=== PATIENT | female | born 1970 | race Caucasian/White ===

== ENCOUNTER 2021-08-16 09:49 | Outpatient (CLI) | payer MEDICARE, OTHER, SELFPAY ==
--- NOTE | 2021-08-16 09:59 | MM_ITS ---
WS: [id number] BILATERAL SCREENING 3D TOMOSYNTHESIS DIGITAL MAMMOGRAM WITH CAD HISTORY: SCREENING COMPARISON: 11/07/2013 and 10/28/2012 Bilateral CC and MLO views submitted. Computer aided detection analyzed. Breast composition: The breasts are heterogeneously dense, which may obscure small masses. No suspici ous masses, microcalcifications or architectural distortion. Benign calcifications in each breast. MM/[place] [id number] IMPRESSION: BI-RADS: 2-Benign FOLLOW UP: 1 Year Follow-up
== END 2021-08-16 09:50 | disposition home or self-care (01) ==
LOC: RADSHAW 09:54
PROVIDERS: PCP Nurse Practitioner Family; Visit Provider Physician Assistant
DX: Z12.31 Encounter for screening mammogram for malignant neoplasm of breast (principal)
CPT/HCPCS: 77063; 77067

== ENCOUNTER 2023-04-30 12:56 | Oncology outpatient (recurring) (ONCR) | payer MEDICARE, OTHER, SELFPAY ==
[2023-04-30 13:50] VITALS: BP 111/77; PULSE 96; RESP 17; TEMP 37.1; O2SAT 98
[2023-04-30] MEDS: tocilizumab 800 MG in sodium chloride 0.9% (100 ml) 100 ML 140 MG IV (14:06)
[2023-04-30 15:15] VITALS: BP 128/76; PULSE 74; RESP 18; TEMP 36.6; O2SAT 98
== END 2023-05-13 23:59 | disposition home or self-care (01) ==
PROVIDERS: PCP Nurse Practitioner Family; Visit Provider Nurse Practitioner Family
DX: M06.042 Rheumatoid arthritis without rheumatoid factor, left hand (principal); M06.041 Rheumatoid arthritis without rheumatoid factor, right hand
CPT/HCPCS: 96365; J3262

== ENCOUNTER 2023-06-01 12:49 | Oncology outpatient (recurring) (ONCR) | payer MEDICARE, OTHER, SELFPAY ==
[2023-06-01 13:05] VITALS: BP 131/85; PULSE 91; RESP 18; TEMP 36.5; O2SAT 97
[2023-06-01] MEDS: cetirizine 10 mg Tablet PO (13:39)
[2023-06-01] MEDS: sodium chloride 0.9% 250 ML 75 ML IV (13:40)
[2023-06-01] MEDS: tocilizumab 800 MG in sodium chloride 0.9% (100 ml) 100 ML 140 MG IV (14:05)
[2023-06-01 15:02] VITALS: BP 127/84; PULSE 101; RESP 18; TEMP 36.4; O2SAT 94
== END 2023-06-11 23:59 | disposition home or self-care (01) ==
PROVIDERS: PCP Nurse Practitioner Family; Visit Provider Nurse Practitioner Family
DX: M06.042 Rheumatoid arthritis without rheumatoid factor, left hand (principal); M06.041 Rheumatoid arthritis without rheumatoid factor, right hand; Z53.9 Procedure and treatment not carried out, unspecified reason
CPT/HCPCS: 96413; J3262; J7050

== ENCOUNTER 2023-07-02 12:34 | Oncology outpatient (recurring) (ONCR) | payer MEDICARE, OTHER, SELFPAY ==
[2023-07-02 13:43] VITALS: BP 124/78; PULSE 90; RESP 18; TEMP 36.6; O2SAT 98
[2023-07-02] MEDS: cetirizine 10 mg Tablet PO (13:52)
[2023-07-02] MEDS: sodium chloride 0.9% 250 ML 75 ML IV (13:53)
[2023-07-02] MEDS: tocilizumab 800 MG in sodium chloride 0.9% (100 ml) 100 ML 140 MG IV (13:56)
[2023-07-02 15:19] VITALS: BP 121/74; PULSE 74; RESP 18; TEMP 36.6; O2SAT 98
== END 2023-07-12 23:59 | disposition home or self-care (01) ==
PROVIDERS: PCP Nurse Practitioner Family; Visit Provider Internal Medicine
DX: M06.042 Rheumatoid arthritis without rheumatoid factor, left hand (principal); M06.041 Rheumatoid arthritis without rheumatoid factor, right hand
CPT/HCPCS: 96413; J3262; J7050

== ENCOUNTER 2023-07-30 12:46 | Oncology outpatient (recurring) (ONCR) | payer MEDICARE, OTHER, SELFPAY ==
[2023-07-30 13:18] VITALS: BP 130/78; PULSE 100; RESP 16; TEMP 36.6; O2SAT 99
--- NOTE | 2023-07-30 13:45 | PC.NURSE ---
patient reports that she took zyrtec 10mg PO 07/29/23 at 1900 and takes that medication scheduled QHS
[2023-07-30] MEDS: tocilizumab 800 MG in sodium chloride 0.9% (100 ml) 100 ML 140 MG IV (13:53)
[2023-07-30 14:02] LABS: Basophils # 0.1 10^3/uL (0.0-0.1); Eosinophils # 0.3 10^3/uL (0.0-0.8); Eosinophils % 3.1 %; Hematocrit 40.2 % (36-47); Lymphocytes # 2.6 10^3/uL (0.8-4.8); Lymphocytes % 28.2 %; Mean Corpuscular HGB Conc 32.3 g/dL (30-55); Mean Corpuscular Hemoglobin 27.4 pg (27-33); Mean Corpuscular Volume 84.8 fl (85-98); Mean Platelet Volume 9.6 fL (7.4-10.4); Monocytes # 0.7 10^3/uL (0.2-0.9); Monocytes % 7.6 %; Neutrophils # 5.54 10^3/uL (1.8-7.7); Neutrophils % 59.6 %; Nucleated Red Blood Cells % 0 %; Platelet Count 407 10^3/cmm (157-399); Red Blood Count 4.74 10^6/uL (3.85-5.65); Red Cell Distribution Width 14.7 % (12.1-15.1)
[2023-07-30 14:21] LABS: Alanine Aminotransferase 84 U/L (0-33); Aspartate Amino Transferase 45 U/L (0-32); Creatinine Clr Calc Pharmacy 99.5469; Glomerular Filtration Rate 75.3 mL/min (90-130)
[2023-07-30 14:55] VITALS: BP 111/77; PULSE 96; RESP 18; TEMP 36.5; O2SAT 97
== END 2023-08-11 23:59 | disposition home or self-care (01) ==
PROVIDERS: PCP Nurse Practitioner Family; Visit Provider Internal Medicine
DX: M06.042 Rheumatoid arthritis without rheumatoid factor, left hand (principal); M06.041 Rheumatoid arthritis without rheumatoid factor, right hand
CPT/HCPCS: 82565; 84450; 84460; 85025; 96365; 96413; J3262

== ENCOUNTER 2023-08-27 11:57 | Oncology outpatient (recurring) (ONCR) | payer MEDICARE, OTHER, SELFPAY ==
[2023-08-27 12:16] VITALS: BP 145/80; PULSE 109; RESP 16; TEMP 36.4; O2SAT 97
[2023-08-27] MEDS: sodium chloride 0.9% 250 ML 75 ML IV (12:32)
[2023-08-27] MEDS: tocilizumab 800 MG in sodium chloride 0.9% (100 ml) 100 ML 140 MG IV (12:43)
[2023-08-27 13:42] VITALS: BP 122/75; PULSE 90; RESP 17; TEMP 36.7; O2SAT 95
== END 2023-09-11 23:59 | disposition home or self-care (01) ==
LOC: ONCMED 11:58
PROVIDERS: PCP Nurse Practitioner Family; Visit Provider Internal Medicine
DX: M06.042 Rheumatoid arthritis without rheumatoid factor, left hand (principal); M06.041 Rheumatoid arthritis without rheumatoid factor, right hand
CPT/HCPCS: J3262; J7050

== ENCOUNTER 2023-09-24 12:15 | Oncology outpatient (recurring) (ONCR) | payer MEDICARE, OTHER, SELFPAY ==
[2023-09-24 13:10] VITALS: BP 119/75; PULSE 99; RESP 16; TEMP 36.3; O2SAT 97
[2023-09-24] MEDS: tocilizumab 800 MG in sodium chloride 0.9% (100 ml) 100 ML 140 MG IV (13:41)
[2023-09-24 14:35] VITALS: BP 132/80; PULSE 92; RESP 16; TEMP 36.4; O2SAT 91
== END 2023-10-11 23:59 | disposition home or self-care (01) ==
LOC: ONCMED 12:16
PROVIDERS: PCP Nurse Practitioner Family; Visit Provider Internal Medicine
DX: M06.042 Rheumatoid arthritis without rheumatoid factor, left hand (principal); M06.041 Rheumatoid arthritis without rheumatoid factor, right hand
CPT/HCPCS: 96365; J3262

== ENCOUNTER 2023-12-28 10:42 | Outpatient (CLI) | payer MEDICARE, OTHER, SELFPAY ==
--- NOTE | 2023-12-28 10:48 | MM_ITS ---
WS: [id number] BILATERAL SCREENING DIGITAL TOMOSYNTHESIS MAMMOGRAM WITH CAD HISTORY: SCREENING COMPARISON: 08/16/2021, 11/07/2013 Bilateral CC and MLO views with tomosynthesis and synthetic mammography submitted. Computer aided det ection analyzed. Breast composition: The breasts are heterogeneously dense, which may obscure small masses. No suspici ous masses, microcalcifications or architectural distortion. Numerous calcifications and bilateral br east masses are all stable. No new mass or distortion. MM/MM scr tomosynthesis [id number] IMPRESSION: BI-RADS: 2 - Benign FOLLOW UP: 1 Year Follow-up
== END 2023-12-28 10:43 | disposition home or self-care (01) ==
PROVIDERS: PCP Nurse Practitioner Family; Visit Provider Nurse Practitioner Family
DX: Z12.31 Encounter for screening mammogram for malignant neoplasm of breast (principal); R92.333 Mammographic heterogeneous density, bilateral breasts; R92.1 Mammographic calcification found on diagnostic imaging of breast
CPT/HCPCS: 77063; 77067

== ENCOUNTER → 2024-05-10 13:49 | Outpatient (BNVA) | payer MEDICARE, OTHER, SELFPAY | PROVIDERS: PCP Nurse Practitioner Family; Visit Provider Orthopaedic Surgery | DX: M54.9 Dorsalgia, unspecified (principal); E11.9 Type 2 diabetes mellitus without complications; M48.062 Spinal stenosis, lumbar region with neurogenic claudication | CPT/HCPCS: 36415; 72072; 72110; 80053; 81003; 83036; 85025; 99204 ==

== ENCOUNTER → 2024-05-20 09:59 | Outpatient (BNVA) | payer MEDICARE, OTHER, SELFPAY | PROVIDERS: PCP Nurse Practitioner Family; Visit Provider Family Medicine | DX: Z01.818 Encounter for other preprocedural examination (principal) | CPT/HCPCS: 93005 ==

== ENCOUNTER 2024-05-23 12:06 | Day surgery (SDC) | payer MEDICARE, OTHER, SELFPAY ==
[2024-05-23] VITALS (11 sets, daily range): BP systolic 128–161; BP diastolic 82–101; PULSE 72–88; RESP 14–18; TEMP 36.2–36.4; O2SAT 90–100; BMI 36.9
--- NOTE | 2024-05-23 | XR_ITS ---
WS: [id number] XR lumbar spine 1V [id number] REASON FOR EXAM: OR PICS FINDINGS: Dorsal column stimulator placement midline T9-10. XR/XR lumbar spine 1V [id number] IMPRESSION: Dorsal column stimulator as above.
[2024-05-23] MEDS: sodium chloride 0.9% 1,000 ML 30 ML IV (12:56)
[2024-05-23 13:01] LABS: Glucose Point of Care 103 mg/dL (70-110)
--- NOTE | 2024-05-23 13:47 | W.PM.OPSUD ---
Surgery/Procedure H&P Update DATE OF PROCEDURE: May 23, 2024 DATE H&P PERFORMED: 05/20/24 H&P UPDATE INFORMATION: I have reviewed H&P completed within last 30 days, I have examined patient prior to procedure and No changes to prior documentation PREOP DIAGNOSIS: Lumbar stenosis neurogenic claudication PLANNED PROCEDURE: Operation Date: 05/23/24 13:55 Proposed Procedures p Implantation of Neurostimulator Paddle Implantation of Neurostimulator Paddle(Not Applicable) - Guero Finney DO s Spinal Cord Stimulator Placement(Not Applicable) - Guero Finney DO
--- NOTE | 2024-05-23 14:03 | ANES.PREANE2 ---
Pre-Anesthetic Assessment Height/Weight: Height 5 ft 5 in Weight 222 lb Temp Pulse Resp BP Pulse Ox O2 Del Method 97.6 F 85 18 161/101 96 Room Air 05/23/24 12:45 05/23/24 12:45 05/23/24 12:45 05/23/24 12:45 05/23/24 12:45 05/23/24 12:45 Preop Diagnosis: Lumbar stenosis neurogenic claudication Operation Date: 05/23/24 13:55 Proposed Procedures p Implantation of Neurostimulator Paddle Implantation of Neurostimulator Paddle(Not Applicable) - Guero Finney DO s Spinal Cord Stimulator Placement(Not Applicable) - Guero Finney DO Was Beta Karyn taken within 24 hours: N/A Was Clonidine taken within 24 hours: N/A Last intake: Intake Last Liquid Date 05/23/24 Last Liquid Time 07:30 Last Solid Date 05/22/24 Last Solid Time 19:30 Social No alcohol and No tobacco Exam alert, oriented x 3, clear to auscultation bilaterally and regular rate & rhythm Airway Submandibular: within normal limits Cervical ROM: within normal limits Mallampati: Class III Dentition: full Comments: Comments: Small mouth opening Anesthetic Plan ASA status: 3 Anesthesia: General Other: Patient states that she got mildly nauseous after her last general anesthetic NPO since yesterday History of hypertension on lisinopril Type 2 diabetes on semaglutide. Last taken 05/15/2024 Hypothyroidism on Synthroid Labs 05/10/2024 reviewed acceptable for procedure Plan for general anesthesia Medications/Allergies Home Medications ?Medication ?Instructions ?Recorded ?Confirmed ?Last Taken ?Type cetirizine 5 mg tablet (Allergy 5 mg PO DAILY 05/10/24 05/20/24 05/19/24 History Relief (cetirizine)) cholecalciferol (vitamin D3) 50 50 mcg PO DAILY 05/10/24 05/20/24 05/19/24 History mcg (2,000 unit) chewable tablet diphenhydramine HCl 25 mg tablet 25 mg PO QDAY 05/10/24 05/20/24 05/19/24 History (Allergy Relief (diphenhydramine)) etanercept 50 mg/mL (1 mL) 50 mg SUBCUT DAILY 05/10/24 05/20/24 05/15/24 History subcutaneous pen injector (Enbrel SureClick) levothyroxine 125 mcg capsule 125 mcg PO DAILY 05/10/24 05/20/24 05/19/24 History lisinopril 40 mg tablet 40 mg PO DAILY 05/10/24 05/20/24 05/19/24 History metformin 500 mg tablet 500 mg PO DAILY 05/10/24 05/20/24 05/19/24 History montelukast 10 mg tablet 10 mg PO DAILY 05/10/24 05/20/24 05/19/24 History omeprazole 40 mg capsule,delayed 40 mg PO DAILY 05/10/24 05/20/24 05/19/24 History release semaglutide 0.25 mg or 0.5 mg (2 0.25 mg SUBCUT DIRECTED 05/10/24 05/20/24 05/15/24 History mg/1.5 mL) subcutaneous pen injector (Ozempic) Allergies Allergy/AdvReac Type Severity Reaction Status Date / Time acetaminophen (From Vicodin) Allergy Unknown Verified 05/20/24 10:22 amoxicillin (From Augmentin) Allergy ADR-Nausea Verified 05/20/24 10:22 clavulanic acid (From Allergy ADR-Nausea Verified 05/20/24 10:22 Augmentin) coconut Allergy ALGY-Swell Verified 05/20/24 10:22 Lip/Tongue/Throat hydrocodone (From Vicodin) Allergy Unknown Verified 05/20/24 10:22 Current Medications Generic Name Dose Route Start Last Admin Trade Name Freq PRN Reason Stop Dose Admin Sodium Chloride 1,000 mls @ 30 mls/hr 05/23/24 12:30 05/23/24 12:56 Sodium Chloride 0.9% IV 05/24/24 12:29 30 mls/hr .Q24H JESSI Administration PFSH Anesthesia Social History Smoking and tobacco/nicotine status: former use of tobacco/nicotine Data Anesthesia Cardiac Studies: No Data to Display
[2024-05-23] MEDS: ceFAZolin 2,000 mg SDV 2000 MG IVP (14:23)
[2024-05-23] MEDS: VANCOMYCIN ADD-Vantage 1,000 MG VIAL 1000 MG XX (15:03)
[2024-05-23] MEDS: lidocaine-epi 1% 20 mL INJ 10 ML INJECTION (15:04)
--- NOTE | 2024-05-23 15:50 | P.OP_ITS ---
Operative Report Date of procedure: May 23, 2024 Pre-op diagnosis: Lumbar stenosis neurogenic claudication Post-op diagnosis: same Procedure done: 1. Placement of neurostimulator paddle 2. Placement of neurostimulator generator/battery Surgeon: Guero Finney DO Estimated blood loss (mL): 15 Procedure: 1. Neurostimulator paddle placement 2. Neurostimulator generator/battery placement Patient is brought to the op suite after going anesthesia was placed in the prone position. All areas appear well-padded. Patient's prepped draped normal sterile fashion. Skin incision made over the T10-11 disc space. Subperiosteal dissection was made out to the transverse processes. Retractors were placed. Rongeur was used by down the spinous process. High-speed bur was used to take down part of the lamina as well as the medial aspect of facet joints. Curved curette was used to undermine where the ligament is and make a space and through the ligament. The Kerrison rongeur was then used to bite the ligament make a hole in the ligament to make space for the placement of the neurostimulator. The hockey-stick trial was then passed followed by placing the neurostimulator up to the middle of T8 body. This was confirmed on C-arm guidance and confirmed with the [employer]tronic rep. AP lateral fluoroscopy ensured that the stimulator was placed in good position. The wires were then sutured down the spinous process of T11. Skin incisions then made over the right flank and a pocket was made for the battery is going to go. The tunneler was then passed from the battery pocket to the location where the wires. The wires were then passed subcutaneously into the pocket. And then the wire was then placed in the battery and tucked underneath and sutured into position. With 0 Vicryl Monocryl suture. And then the laminectomy site was then closed with 0 Vicryl 2-0 Vicryl and Monocryl suture. Sterile dressings were applied and patient was transferred to the PACU in stable condition.
[2024-05-23] MEDS: fentaNYL 50 mcg/mL INJ 2mL IVP (16:01)
[2024-05-23] MEDS: scopolamine 1 mg PATCH 1 PATCH TRANSDERMA (17:05)
--- NOTE | 2024-05-23 17:17 | ANE.PACU2 ---
Inpatient post-anesthesia follow up: Airway intact: Yes Vital signs: Temperature 97.1 F Pulse Rate 80 Respiratory Rate 16 Blood Pressure 139/86 Pulse Oximetry 100 Oxygen Delivery Me thod Nasal Cannula Oxygen Flow Rate 1 Fraction of Inspir ed Oxygen Hydration adequate: Yes Nausea and vomiting: No Pain level: 2 Mental status: Baseline
== END 2024-05-23 17:17 | disposition home or self-care (01) ==
PROVIDERS: PCP Nurse Practitioner Family; Visit Provider Orthopaedic Surgery
PROC: (CPT 63655; principal; 2024-05-23 13:45)
PROC: (CPT 63685; 2024-05-23 13:45)
DX: M48.062 Spinal stenosis, lumbar region with neurogenic claudication (principal); I10 Essential (primary) hypertension; E11.9 Type 2 diabetes mellitus without complications; E03.9 Hypothyroidism, unspecified; Z87.891 Personal history of nicotine dependence
CPT/HCPCS: 63655; 63685; 36416; 72020; 76000; 82962; C1713; J0690; J1100; J1200; J2250; J2405; J2704; J3010; J3370; J3490; J7030

== ENCOUNTER → 2024-06-07 14:20 | Outpatient (BNVA) | payer MEDICARE, OTHER, SELFPAY | PROVIDERS: PCP Nurse Practitioner Family; Visit Provider Orthopaedic Surgery | DX: Z48.89 Encounter for other specified surgical aftercare (principal) | CPT/HCPCS: 99024 ==

== ENCOUNTER → 2024-06-14 12:39 | Outpatient (BNVA) | payer MEDICARE, OTHER, SELFPAY | PROVIDERS: PCP Nurse Practitioner Family; Visit Provider Orthopaedic Surgery | DX: Z48.89 Encounter for other specified surgical aftercare (principal) | CPT/HCPCS: 99024 ==

== ENCOUNTER 2025-03-16 13:38 | Outpatient (CLI) | payer MEDICARE, OTHER, SELFPAY ==
--- NOTE | 2025-03-16 13:45 | MM_ITS ---
WS: [id number] VIEWS: MLO and CC views both breasts. 3D digital tomosynthesis is also included in this exam. Comparison made with prior exam of 11/07/2013. 11/21/2011. 10/28/2012. 08/16/2021. 12/28/2023. Findings: The breasts are heterogeneously dense, which may obscure small masses. Stable appearing nodular densities in both breasts. Scattered bilateral benign- appearing calcifications. No new suspicious finding. MM/MM scr BI tomosynthesis [id number] Impression: BI-RADS: 2 - Benign FOLLOW-UP: 1 Year Follow-up This mammogram was also analyzed by the Computer Aided Detection System [employer].
== END 2025-03-16 13:39 | disposition home or self-care (01) ==
LOC: RAD 13:38
PROVIDERS: PCP Nurse Practitioner Family; Visit Provider Nurse Practitioner Family
DX: Z12.31 Encounter for screening mammogram for malignant neoplasm of breast (principal); R92.333 Mammographic heterogeneous density, bilateral breasts; R92.1 Mammographic calcification found on diagnostic imaging of breast
CPT/HCPCS: 77063; 77067